=== PATIENT | female | born 1965 | race African-American/Black ===

== ENCOUNTER 2018-01-16 12:37 | Emergency (ER) | payer SELFPAY ==
[~2018-01-16] VITALS: Ht 170.2 cm; Wt 82.0 kg
[2018-01-16 13:30] VITALS: BP 125/64
== END 2018-01-16 14:59 | disposition home or self-care (01) ==
LOC: ER 13:30
DX: S90.122A Contusion of left lesser toe(s) without damage to nail, initial encounter (principal); F17.200 Nicotine dependence, unspecified, uncomplicated; W22.09XA Striking against other stationary object, initial encounter; Y93.89 Activity, other specified; Y92.018 Other place in single-family (private) house as the place of occurrence of the external cause
CPT/HCPCS: 73630; 99284